=== PATIENT | female | born 1995 | race Two or more races ===

== ENCOUNTER 2019-01-22 17:59 | Emergency (ER) ==
[~2019-01-22] VITALS: Ht 162.6 cm; Wt 88.9 kg
--- NOTE | 2019-01-22 18:15 | NUR ---
TO ER BED 4
--- NOTE | 2019-01-22 18:19 | NUR ---
RONI VALLECILLO AT BEDSIDE
[2019-01-22] MEDS ORDERED: IV NS 0.9% 1,000 ML BAG IV ONE (18:30)
[2019-01-22] MEDS ORDERED: KETOROLAC TROMETHAMINE INJ 30 MG/ML VIAL IV ONE ×2 (18:30→20:30)
[2019-01-22] MEDS ORDERED: DEXAMETHASONE SOD PHOSPHATE 10 MG/ML VIAL IV ONE (18:30)
--- NOTE | 2019-01-22 18:30 | NUR ---
patient came to er BIB mother, c/o cough and sorethroat. On room air, breathing evenly and unlabored. Kept comfortable, will continue to monitor accordingly.
[2019-01-22] MEDS ORDERED: KETOROLAC TROMETHAMINE 15 MG/ML VIAL ONE ×2 (18:49→19:57)
[2019-01-22] MEDS ORDERED: DEXAMETHASONE SOD PHOSPHATE 10 MG/ML VIAL ONE (18:49)
--- NOTE | 2019-01-22 19:21 | NUR ---
Report given to night RN for sangita.
[2019-01-22 19:38] LABS: MONOTEST NEGATIVE (NEGATIVE)
--- NOTE | 2019-01-22 19:58 | NUR ---
PER VERBAL ORDER FROM ER PA, WILL ADMINISTERED TORADOL 15MG IV X1 NOW
--- NOTE | 2019-01-22 20:15 | NUR ---
Patient discharged to home in stable condition. Written and verbal after care instructions given. Patient verbalizes understanding of instruction. IV removed. Catheter intact and site benign. Pressure and 4x4 applied to site. No bleeding noted. Pt ambulatory with a steady gait
[2019-01-22 20:17] VITALS: BP 129/87
== END 2019-01-22 20:18 | disposition home or self-care (01) ==
LOC: ER 17:59
DX: J02.8 Acute pharyngitis due to other specified organisms (principal); B97.89 Other viral agents as the cause of diseases classified elsewhere; R11.10 Vomiting, unspecified; F17.200 Nicotine dependence, unspecified, uncomplicated; R00.0 Tachycardia, unspecified; Z90.89 Acquired absence of other organs
CPT/HCPCS: 36415; 86308; 87880; 96361; 96374; 96375; 99283; J1100; J1885; J7030; 86403-TC